=== PATIENT | male | born 1965 | race Asian ===

== ENCOUNTER 2019-11-15 18:10 | Emergency (ER) | payer SELFPAY ==
[~2019-11-15] VITALS: Ht 160 cm; Wt 73.0 kg
[2019-11-15] MEDS ORDERED: LORAZEPAM 0.5MG TABLET PO ONE (20:45)
[2019-11-15 23:23] LABS: BASOPHILS % 0.4 % (0.0-2.0); EOSINOPHILS % 0.5 % (0.0-5.0); HEMATOCRIT. 42.1 % (42.0-52.0); HEMOGLOBIN. 14.1 g/dL (14.0-18.0); LYMPHOCYTES % 14.7 % (20.0-50.0); MEAN CORPUSCULAR HEMOGLOBIN 29.6 pg (28.0-32.0); MEAN CORPUSCULAR VOLUME 88.5 fL (80.0-94.0); MEAN PLATELET VOLUME 8.3 fl (7.4-10.4); MONOCYTES % 9.8 % (2.0-8.0); NEUTROPHILS % 74.6 % (40.0-76.0); PLATELET 257 x1000/uL (130-400); RED BLOOD CELL COUNT 4.75 mill/uL (4.7-6.1); RED CELL DISTRIBUTION WIDTH 15.1 % (11.6-14.6)
[2019-11-15 23:25] LABS: CHLORIDE 106 mEq/L (98-107)
[2019-11-15 23:30] LABS: ETHANOL BLOOD < 10 mg/dL
[2019-11-16 06:31] VITALS: BP 122/64
== END 2019-11-16 06:32 | disposition home or self-care (01) ==
LOC: ER 18:50
DX: F41.9 Anxiety disorder, unspecified (principal); Z59.0 Homelessness; Z75.1 Person awaiting admission to adequate facility elsewhere
CPT/HCPCS: 36415; 80053; 80320; 85025; 99283; G0480